=== PATIENT | female | born 1985 | race African-American/Black ===

== ENCOUNTER 2016-06-19 12:50 | Emergency (ER) | payer OTHER ==
[~2016-06-19] VITALS: Ht 154.9 cm; Wt 46.7 kg
[~2016-06-19 12:50] MED LIST: NAPROSYN500 MG PO; NOHOMEMEDICATIONS
[2016-06-19] MEDS ORDERED: NAPROSYN500 MG PO (14:00)
[2016-06-19] MEDS ORDERED: BACLOFEN 10MG T10 MG PO (14:00)
[2016-06-19 14:15] VITALS: BP 139/69
== END 2016-06-19 14:16 | disposition home or self-care (01) ==
LOC: ER 12:50
DX: M25.512 Pain in left shoulder (principal); F10.99 Alcohol use, unspecified with unspecified alcohol-induced disorder

== ENCOUNTER 2017-07-22 19:01 | Emergency (ER) | payer OTHER ==
[~2017-07-22] VITALS: Ht 154.9 cm; Wt 47.2 kg
[~2017-07-22 19:01] MED LIST changes: +BACLOFEN 10MG T10 MG PO; +BACTRIM DS TAB1 EACH PO; +ERYTHROMYCIN E3.5 G1 OPHTHALMIC; +NORCO 5-325 TA1 EACH PO
[2017-07-22] MEDS ORDERED: IBUPROFEN 600600 M1 PO (22:06)
== END 2017-07-22 22:39 | disposition home or self-care (01) ==
LOC: ER 19:01
DX: S80.12XA Contusion of left lower leg, initial encounter (principal); S60.222A Contusion of left hand, initial encounter; V89.2XXA Person injured in unspecified motor-vehicle accident, traffic, initial encounter; Y93.89 Activity, other specified; Y92.89 Other specified places as the place of occurrence of the external cause; Y99.8 Other external cause status